=== PATIENT | male | born 1995 | race Two or more races ===

== ENCOUNTER 2019-02-20 03:41 | Emergency (ER) | payer OTHER ==
[2019-02-20] MEDS ORDERED: SODIUM CHLORIDE 0.9% 500 ML INFUS.BAG IV ONE (03:57)
--- NOTE | 2019-02-20 03:58 | PDOC ---
History of Present Illness - General Stated Complaint: DRY MOUTH Time Seen by Provider: 02/20/19 03:54 - History of Present Illness Initial Comments: Jerry Oliver is an otherwise healthy 23yo who was brought to the ED by his parents due to odd behavior at home and reportedly saying that he felt like he was "going to ." The patient states that he feels heavy currently. Mr Oliver reports that he and his brother split an edible THC-containing cereal bar this evening; the brother has similar symptoms and is also present in the ED. He denies any other drug or alcohol use. He denies any chest pain, difficulty breathing, nausea/vomiting, diarrhea, weakness, numbness/tingling, difficulty walking, falls, injury, fever/chills or other recent symptoms. Past History - Past Medical History Allergies/Adverse Reactions: Allergies Allergy/AdvReac Type Severity Reaction Status Date / Time No Known Allergies Allergy Verified 05/08/11 15:01 - Immunization History Immunization Up to Date: Yes - Psycho Social/Smoking Cessation Hx Smoking Status: No Number of Cigarettes Smoked Daily: 0 Review of Systems - Review of Systems Comments:: General: No fevers, no chills, no weight or appetite change, no malaise HEENT: No changes in vision, no changes in hearing, no congestion, no sore throat CV: No chest pain, no palpitations, no LE edema Pulm: No SOB, no cough, no wheezing GI: No nausea or vomiting, no change in bowel habits, no melena : No frequency, no urgency, no dysuria Musc: No back pain, no joint swelling, no recent injury Skin: No rash, no lesions, no erythema Endo: No excessive thirst, no heat/cold intolerance Heme: No unusual bruising or bleeding, no swollen glands Neuro: No syncope, no numbness/tingling, no focal weakness Vasc: No claudication Psych: No recent change in mood, no SI or HI *Physical Exam - Physical Exam Comments: General: Comfortable, no acute distress HEENT: PERRL, EOMI, MMM, +conjunctival injection, voice normal, normal neck ROM Cards: RRR, no murmur appreciated Pulm: Comfortable on room air, clear to auscultation bilaterally Abd: Soft, nontender, nondistended Ext: Atraumatic. No LE edema. ROM intact. WWP Skin: Normal color, no rashes or lesions Neuro: A&Ox3, CN grossly intact, normal speech, motor/sensory grossly intact and symmetric Psych: Mood appropriate to situation ED Treatment Course - LABORATORY CBC & Chemistry Diagram: 02/20/19 04:08 02/20/19 04:08 Medical Decision Making - Medical Decision Making 02/20/19 03:57 Jerry Oliver is an otherwise healthy 23yo who was brought to the ED by his parents due to odd behavior, sensation of heaviness after eating a THC containing bar this evening. His brother, who ate the same food, has similar symptoms. - Presentation consistent with acute THC intoxication - CBC, CMP to evaluate for other causes of altered behavior - IVF for rehydration 02/20/19 04:55 - Labs with no concerning abnormalities - Will discharge home with parents Discussed with Dr Aileen Bunch PGY2 Discharge - Discharge Information Problems reviewed: Yes Clinical Impression/Diagnosis: Intoxication due to misuse of recreational drug Condition: Stable Disposition: HOME - Admission No - Follow up/Referral Referrals: Regla Klipatrick MD [Primary Care Provider] - - Patient Discharge Instructions Patient Printed Discharge Instructions: Substance Use Disorder Additional Instructions: Discharge Instructions: You were seen in the emergency department for THC intoxication. You had blood tests that did not show any concerning abnormalities. It is strongly recommended that you do not use marijuana, edible THC, or any other substances. Consider detox or rehab. Make an appointment to see your regular doctor within the next week. - Post Discharge Activity
[2019-02-20 04:27] VITALS: TEMP 98.4; BMI 33.9
[2019-02-20 04:28] LABS: BASO % 0.6 % (0-2.0); EOS % 0.4 % (0-4.5); HEMATOCRIT 42.5 % (35.4-49); LYMPH % 17.6 % (8-40); MCH 29.6 pg (25.7-33.7); MEAN CELL VOLUME 89.7 fl (80-96); MEAN PLT VOLUME 8.3 fl (7.5-11.1); MONO % 6.3 % (3.8-10.2); NEUT % 75.1 % (42.8-82.8); PLATELET COUNT 284 K/MM3 (134-434); RBC 4.74 M/mm3 (4.00-5.60); RDW 13.2 % (11.9-15.9); WHITE BLOOD COUNT 8.2 K/mm3 (4.0-10.0)
[2019-02-20 04:42] LABS: ALBUMIN 4.2 g/dl (3.4-5.0); BILIRUBIN,TOTAL 0.4 mg/dL (0.2-1); BLOOD UREA NITROGEN 16.5 mg/dL (7-18); CALCIUM 9.1 mg/dL (8.5-10.1); CREATININE 1.2 mg/dL (0.55-1.3); POTASSIUM 3.6 mmol/L (3.5-5.1); TOT PROT 7.3 g/dl (6.4-8.2)
--- NOTE | 2019-02-20 04:55 | PDOC ---
Attending Attestation - Resident Resident Name: Marixa Bunch - ED Attending Attestation I have performed the following: I have examined & evaluated the patient, The case was reviewed & discussed with the resident, I agree w/resident's findings & plan - HPI HPI: 02/20/19 04:58 Pt ate an edible; split it with his brother. - Physicial Exam PE: 02/20/19 04:58 Normal exam. vitals normal BP slightly low. Pt hydrated with NSS. - Medical Decision Making 02/20/19 04:58 Labs normal exam normal vitals normal Stable for d/c home
[2019-02-20 05:24] VITALS: BP 124/73; PULSE 94
== END 2019-02-20 05:15 | disposition home or self-care (01) ==
LOC: JER 03:41
DX: F19.129 Other psychoactive substance abuse with intoxication, unspecified (principal)
CPT/HCPCS: 36415; 80053; 85025; 99283-25

== ENCOUNTER 2023-12-02 13:28 | Emergency (ER) | payer OTHER ==
[2023-12-02 15:23] LABS: BASO % 0.9 % (0-2.0); EOS % 4.1 % (0-4.5); HEMATOCRIT 42.2 % (35.4-49); HEMOGLOBIN 14.4 GM/dL (11.7-16.9); LYMPH % 35.2 % (8-40); MCH 29.4 pg (25.7-33.7); MCHC 34.2 g/dl (32.0-35.9); MEAN CELL VOLUME 85.9 fl (80-96); MONO % 11.3 % (3.8-10.2); NEUT % 48.5 % (42.8-82.8); PLATELET COUNT 293 10^3/uL (134-434); RBC 4.91 M/mm3 (4.00-5.60); WHITE BLOOD COUNT 6.4 K/mm3 (4.0-10.0)
[2023-12-02 15:32] VITALS: BP 131/87; PULSE 76; RESP 19; TEMP 99; BMI 42.3
[2023-12-02 15:44] LABS: CHLORIDE 106 mmol/L (98-107); SODIUM 138 mmol/L (136-145)
[2023-12-02 15:45] LABS: CALCIUM 9.4 mg/dL (8.5-10.1)
[2023-12-02 15:46] LABS: ANION GAP 7 mmol/L (4-13); BLOOD UREA NITROGEN 15.4 mg/dL (7-18); CO2 26 mmol/L (21-32); GLUCOSE,RANDOM 116 mg/dL (74-106)
== END 2023-12-02 17:16 | disposition home or self-care (01) ==
LOC: JER 13:28
DX: L03.211 Cellulitis of face (principal); R21 Rash and other nonspecific skin eruption
CPT/HCPCS: 36415; 70460-TC; 70487-TC; 80048; 85025; 86140; 99285-25; Q9967